=== PATIENT | female | born 1965 | race American Indian/Alaskan Native ===

== ENCOUNTER 2017-07-05 09:38 | Outpatient (CLI) | payer OTHER ==
--- NOTE | 2017-07-05 11:30 | XRay Report ---
PA and lateral chest: Chest pain. There is a focal linear area of scar or atelectasis posteriorly at the right lung base. The lungs otherwise appear generally clear. There is no vascular congestion. There is mild enlargement of the cardiac contour. No prior exam for comparison. Impression: Right basilar atelectasis/scar. Mild cardiac enlargement.
--- NOTE | 2017-07-05 15:39 | Nuclear Medicine Report ---
The LUNG SCAN, VENTILATION AND PERFUSION: Lupus erythematosus. Inhalation of Xenon gas demonstrates a normal distribution of the activity throughout both lungs. The wash out phases show no focal retention of activity. After injection of Technetium 99m macroaggregated albumin gamma camera imaging of the lungs in multiple projections demonstrates normal pulmonary contours with a homogeneous distribution of activity. No focal areas of perfusion deficiency are identified. IMPRESSION: Normal study.
== END 2017-07-05 09:39 | disposition home or self-care (01) ==
LOC: NM 09:38
PROVIDERS: ATTEND Internal Medicine Cardiovascular Disease
DX: I51.7 Cardiomegaly (principal); L93.0 Discoid lupus erythematosus
CPT/HCPCS: 71046; 78582; A9540; A9558